=== PATIENT | female | born 1990 | race Caucasian/White ===

== ENCOUNTER 2018-11-11 13:37 | Emergency (ER) | payer MEDICAID, OTHER ==
[~2018-11-11] VITALS: Ht 162.6 cm; Wt 64.1 kg
[~2018-11-11 13:37] MED LIST: AMOX250C PO; CEPH-443 PO; FERR-55 PO; IBUP-1541 PO; MUPI22OI2 TOP; PREN-39 PO; SULF1TAB31 PO
[2018-11-11 13:53] VITALS: BP 116/68; PULSE 93; RESP 20; Ht 162.6 cm; Wt 64.1 kg
[2018-11-11] MEDS ORDERED: ACETAMINOPHEN 325 MG TAB PO ONE (17:00)
[2018-11-11] MEDS ORDERED: PHENAZOPYRIDINE 100 MG TAB PO ONE (17:00)
[2018-11-11] MEDS ORDERED: CEPHALEXIN 500 MG CAP PO ONE (17:00)
[2018-11-11] MEDS ORDERED: IBUP-1542 PO (17:12)
[2018-11-11] MEDS ORDERED: PHEN-538 PO (17:12)
[2018-11-11] MEDS ORDERED: CEPH-443 PO (17:12)
--- NOTE | 2018-11-11 17:14 | ERD ---
ER Documentation Chief Complaint Chief Complaint pain/burning on urination; pain on vaginal area; blood tinged urine HPI 28-year-old female presents with dysuria and hematuria and suprapubic pain since last night. She denies any fevers, vomiting, flank pain, significant abdominal pain. She denies . Last menstrual period was 2 weeks ago. ROS All systems reviewed and are negative except as per history of present illness. Medications Home Meds Active Scripts Ibuprofen* (Motrin*) 600 Mg Tab, 600 MG PO Q6, #15 TAB Prov:QUIRINO LINTON MD 11/11/18 Phenazopyridine Hcl* (Pyridium*) 200 Mg Tab, 200 MG PO TID PRN for URINARY PAIN, #6 TAB Prov:QUIRINO LINTON MD 11/11/18 Cephalexin* (Keflex*) 500 Mg Capsule, 500 MG PO QID for 5 Days, CAP Prov:QUIRINO LINTON MD 11/11/18 Mupirocin* (Bactroban*) 2% -22 Gram Oint...g., 1 APPLIC TOP BID for 7 Days, EA Prov:CHAYO GIBSON NP 06/21/16 Cephalexin* (Keflex*) 500 Mg Capsule, 500 MG PO QID for 7 Days, CAP Prov:CHAYO GIBSON NP 06/21/16 Ibuprofen* (Ibuprofen*) 400 Mg Tablet, 400 MG PO Q6H PRN for PAIN, #30 TAB Prov:DARLENE RUSSO NP 04/22/15 Sulfamethoxazole-Trimethoprim (Bactrim DS Tablet) 800-160 Mg Tab, 1 TAB PO BID for 10 Days, TAB Prov:DARLENE RUSSO NP 04/22/15 Reported Medications Amoxicillin* (Amoxicillin*) 250 Mg Cap, 250 MG PO Q8, CAP 06/05/14 Ferrous Sulfate* (Ferrous Sulfate*) 325 Mg Tablet, 325 MG PO DAILY, TAB 06/05/14 Vits W-Ca,Fe,Fa(<1MG) ( Vitamins) 1 Tab Tablet, 1 TAB PO DAILY 06/05/14 Allergies Allergies: Coded Allergies: No Known Allergy (Unverified , 01/08/14) PMhx/Soc History of Surgery: No Anesthesia Reaction: No Hx Neurological Disorder: No Hx Respiratory Disorders: No Hx Cardiac Disorders: No Hx Psychiatric Problems: No Hx Miscellaneous Medical Probl: No Hx Alcohol Use: No Hx Substance Use: No Hx Tobacco Use: No Smoking Status: Never smoker FmHx Family History: No diabetes, No coronary disease, No other Physical Exam Vitals Vital Signs Date Temp Pulse Resp B/P (MAP) Pulse Ox O2 O2 Flow FiO2 Time Delivery Rate 11/11/18 97.1 93 20 116/68 100 13:53 (84) Physical Exam Const: No acute distress Head: Atraumatic Eyes: Normal Conjunctiva ENT: Normal External Ears, Nose and Mouth. Neck: Full range of motion. No meningismus. Resp: Clear to auscultation bilaterally Cardio: Regular rate and rhythm, no murmurs Abd: Soft, non tender, non distended. Normal bowel sounds Skin: No petechiae or rashes Back: No midline or flank tenderness Ext: No cyanosis, or edema Neur: Awake and alert Psych: Normal Mood and Affect Results 24 hrs Laboratory Tests Test 11/11/18 16:33 11/11/18 16:35 Bedside Urine pH (LAB) 7.0 Bedside Urine Protein (LAB) 2+ Bedside Urine Glucose (UA) Negative Bedside Urine Ketones (LAB) Trace Bedside Urine Blood 3+ Bedside Urine Nitrite (LAB) Negative Bedside Urine Leukocyte Esterase (L 1+ POC Beta HCG, Qualitative NEGATIVE Current Medications Medications Dose Sig/Ramona Start Time Status Last (Trade) Ordered Route PRN Stop Time Admin Dose Reason Admin Cephalexin 500 mg ONCE ONCE 11/11/18 DC 11/11/18 (Keflex) PO 17:00 16:56 11/11/18 17:01 650 mg ONCE ONCE 11/11/18 DC 11/11/18 Acetaminophen PO 17:00 16:56 (Tylenol 11/11/18 17:01 Tab) 200 mg ONCE ONCE 11/11/18 DC 11/11/18 Phenazopyridi PO 17:00 16:56 ne HCl 11/11/18 17:01 (Pyridium) Procedures/MDM Urine shows hemoglobin, leukocyte esterase, hCG is negative. Patient has signs and symptoms of uncomplicated cystitis. She has no signs of abdominal pain, fever, vomiting, additional concerning signs or symptoms. We will treat with Keflex, Pyridium, fluids, return precautions for fevers, vomiting, abdominal pain, new worsening symptoms. The patient was stable with no new complaints during the ER course. Clinically, there is no current evidence to suggest meningitis, sepsis, acute abdomen, pneumonia, stroke, acute coronary syndrome, pulmonary embolism, aortic dissection or any other emergent condition appearing to require further evaluation or hospitalization. Patient counseled regarding my diagnostic impression and care plan. Prior to discharge all questions answered. Pt agrees with treatment plan and understands strict return precautions. Pt is instructed to follow up with primary care provider within 24- 48 hours. Precautionary instructions provided including instructions to return to the ER if not improving or for any worsening or changing symptoms or concerns. Departure Diagnosis: Primary Impression: UTI (urinary tract infection) Urinary tract infection type: acute cystitis Hematuria presence: without hematuria Qualified Codes: N30.00 - Acute cystitis without hematuria Condition: Stable Patient Instructions: Understanding Urinary Tract Infections (UTIs) Referrals: DOCTOR,NOT ON STAFF (PCP) Additional Instructions: Urine shows infection is likely cause of symptoms. Drink plenty of fluids at home. Recheck for fevers, vomiting, worsening pain, new worsening symptoms. QUIRINO LINTON MD Nov 11, 2018 17:14
== END 2018-11-11 17:17 | disposition home or self-care (01) ==
LOC: FTE 13:37
DX: N30.00 Acute cystitis without hematuria (principal); R10.2 Pelvic and perineal pain
CPT/HCPCS: 81003; 81025; Z7502; Z7610; 99283